=== PATIENT | female | born 1995 | race Caucasian/White ===

== ENCOUNTER 2018-06-08 13:41 | Outpatient (CLI) | payer OTHER ==
[~2018-06-08] VITALS: Ht 157.5 cm; Wt 86.5 kg
[2018-06-08 13:53] VITALS: Ht 157.5 cm; Wt 86.5 kg
[2018-06-08 13:54] VITALS: BP 122/70
[2018-06-08] MEDS ORDERED: PREN1TAB71 PO (13:55)
--- NOTE | 2018-06-08 17:34 | PN ---
Triage Information Date/Time Reason for visit: Abd/pelvic pain Weeks of Gestation 24 weeks and 5 days /Para [id number] Diabetes: none Objective Vital Signs Date Temp Pulse Resp B/P (MAP) Pulse Ox O2 O2 Flow FiO2 Time Delivery Rate 06/08/18 98.1 122/70 Room Air 13:54 (87) Heart Rate: 140's Results/Medications Results 24 hrs Laboratory Tests Test 06/08/18 14:08 06/08/18 15:30 Urine Color STRAW Urine Clarity CLEAR Urine pH 6.0 Urine Specific [place] 1.004 Urine Ketones NEGATIVE Urine Nitrite NEGATIVE Urine Bilirubin NEGATIVE Urine Urobilinogen NEGATIVE Urine Leukocyte Esterase TRACE A Urine Microscopic RBC 0 Urine Microscopic WBC 1 Urine Squamous Epithelial Cells FEW Urine Bacteria FEW A Urine Hemoglobin NEGATIVE Urine Glucose NEGATIVE Urine Total Protein NEGATIVE Fibronectin NEGATIVE Imaging Results There is a single live intrauterine . Normal cardiac activity is identified at a rate of 154 beats per minute. presentation is breech. Placenta is posterior grade 1. There is no evidence of placenta previa or abruption. The cervix is closed with a length of 5.0 cm. MVP= 4.5 cm cm IMPRESSION: MVP= 4.5 cm Breech position Disposition: Discharge Assessment/Plan 22 years old was 002 with single intrauterine at 24 weeks and 5 days with a JESSIKA of 09/23/2018 complaining of abdominal pain. She states baby has been active. She denies nausea, vomiting, shortness of breath, chest pain, headache, visual changes, vaginal bleeding or LOF. -FHR: No sign of metabolic acidosis- Category I -Contractions: None -Ultrasound performed as noted above. Normal cervical length - fibronectin negative, urinalysis normal -Symptoms and sign of labor, preeclampsia, kick count discussed with patient, she voiced understanding. All of her questions answered. -Patient was discharged home in stable condition with the appropriate discharge instructions provided. I would like patient to have close follow-up with her primary physician or outpatient clinic in 1-2 days or return to triage for worsening symptoms or any other urgent concerns. KAREN CARNEY Jun 08, 2018 17:34
== END 2018-06-08 17:35 | disposition home or self-care (01) ==
LOC: OBT 13:41 → L-D 13:41 → OBT 17:35
PROVIDERS: ATTEND Obstetrics & Gynecology
DX: O26.892 Other specified pregnancy related conditions, second trimester (principal); Z3A.24 24 weeks gestation of pregnancy; R10.2 Pelvic and perineal pain
CPT/HCPCS: 76815; 76817; 81001; 82731; Z7500; G0463

== ENCOUNTER 2018-08-23 10:08 | Outpatient (CLI) | payer OTHER ==
[~2018-08-23] VITALS: Ht 157.5 cm; Wt 94.9 kg
[~2018-08-23 10:08] MED LIST: PREN1TAB71 PO
[2018-08-23 10:26] VITALS: BP 128/66; PULSE 103; RESP 18; Ht 157.5 cm; Wt 94.9 kg
[2018-08-23] MEDS ORDERED: TERBUTALINE 1 ML ONE (11:16)
[2018-08-23] MEDS ORDERED: TERBUTALINE 1 MG/ML INJ SC ONE ×2 (11:30→15:00)
[2018-08-23] MEDS ORDERED: LACTATED RINGER'S 1,000 ML IV ONE (11:30)
[2018-08-23] MEDS ORDERED: LACTATED RINGER'S 1,000 ML IV SCH (13:00)
--- NOTE | 2018-08-23 14:43 | PN ---
Triage Information Date/Time August 23, 2018 Reason for visit: Sent in from clinic because of complaint of headache and blurred vision and is much his blood pressure was normal Weeks of Gestation 35 weeks and 4 days /Para 3 para 2 Diabetes: none Hypertention: none Objective Vital Signs Date Temp Pulse Resp B/P (MAP) Pulse Ox O2 O2 Flow FiO2 Time Delivery Rate 08/23/18 98.3 103 18 128/66 10:26 (86) Heart Rate: 140's Heart Rate Comments Reactive Contractions: 6-10 Minutes Apart (Contractions subsided after administration of subcutaneous terbutaline and IV hydration) Exam Closed Results/Medications Result Diagram: 08/23/18 1019 08/23/18 1019 Results 24 hrs Laboratory Tests Test 08/23/18 10:19 08/23/18 10:20 White Blood Count 8.9 Red Blood Count 4.07 L Hemoglobin 11.7 L Hematocrit 35.3 L Mean Corpuscular Volume 86.7 Mean Corpuscular Hemoglobin 28.7 L Mean Corpuscular Hemoglobin Concent 33.1 Red Cell Distribution Width 14.3 Platelet Count 175 Mean Platelet Volume 11.6 H Immature Granulocytes % 1.100 H Neutrophils % 74.9 Lymphocytes % 18.5 Monocytes % 4.6 Eosinophils % 0.7 Basophils % 0.2 Nucleated Red Blood Cells % 0.0 Immature Granulocytes # 0.100 H Neutrophils # 6.7 Lymphocytes # 1.7 Monocytes # 0.4 Eosinophils # 0.1 Basophils # 0.0 Nucleated Red Blood Cells # 0.0 Sodium Level 136 Potassium Level 4.0 Chloride Level 109 Carbon Dioxide Level 21 Anion Gap 6 Blood Urea Nitrogen 9 Creatinine 0.52 Est Glomerular Filtrat Rate mL/min > 60 Glucose Level 151 Uric Acid 6.2 Calcium Level 9.3 Total Bilirubin 0.3 Direct Bilirubin 0.00 Indirect Bilirubin 0.3 Aspartate Amino Transf (AST/SGOT) 28 Alanine Aminotransferase (ALT/SGPT) 14 Alkaline Phosphatase 168 H Total Protein 6.3 Albumin 3.3 Globulin 3.00 Albumin/Globulin Ratio 1.10 Prothrombin Time 12.4 Prothrombin Time Ratio 1.0 INR International Normalized Ratio 0.91 Activated Partial Thromboplast Time 30.0 Fibrinogen 491.0 H Urine Color YELLOW Urine Clarity SLIGHTLY CLOUDY A Urine pH 6.0 Urine Specific [place] 1.017 Urine Ketones NEGATIVE Urine Nitrite NEGATIVE Urine Bilirubin NEGATIVE Urine Urobilinogen NEGATIVE Urine Leukocyte Esterase NEGATIVE Urine Microscopic RBC 0 Urine Microscopic WBC 2 Urine Squamous Epithelial Cells FEW Urine Bacteria FEW A Urine Hemoglobin NEGATIVE Urine Glucose NEGATIVE Urine Total Protein NEGATIVE Medications Current Medications Lactated Ringer's 1,000 ml @ 125 mls/hr Q8H IV ; Start 08/23/18 at 13:00 Imaging Results Normal biophysical profile. The EFW = 3241 g, 93%ile based on LMP age. Disposition: Discharge Assessment/Plan Blood pressures remained stable and -induced hypertension was ruled out Will follow as outpatient Tractions subsided CHRIS BELLO MD Aug 23, 2018 14:43
--- NOTE | 2018-08-23 17:43 | TRIAGE ---
OB Triage Datetime Report Generated by CPN: 08/23/2018 17:42 Datetime: 08/23/2018 16:52 Stage of : OB Triage Datetime: 08/23/2018 16:08 Labor Evaluation Frequency: 0 Monitor Mode: External Pattern: Normal: <= 5 Contractions in 10 Minutes Resting Tone [place]: Relaxed Heart Rate FHR Baseline Rate: 135 Monitor Mode: External US Variability: Moderate 6-25 bpm Accelerations: 10X10 Decelerations: None Category: Category I Pain Assessment Pain Scale: 0 Pain Presence: None/Denies Pain Type: N/A Pain Goal: 3 Pain Relief Measures: Comfort Measures Datetime: 08/23/2018 15:09 Labor Evaluation Frequency: 8-10 Monitor Mode: External Duration (sec)2399: 40-60 Pattern: Normal: <= 5 Contractions in 10 Minutes Resting Tone [place]: Relaxed Heart Rate FHR Baseline Rate: 135 Monitor Mode: External US Variability: Moderate 6-25 bpm Accelerations: 10X10 Decelerations: None Category: Category I Pain Assessment Pain Scale: 0 Pain Presence: None/Denies Pain Type: N/A Pain Goal: 3 Pain Relief Measures: Comfort Measures Datetime: 08/23/2018 14:44 Stage of : OB Triage Datetime: 08/23/2018 14:03 Labor Evaluation Frequency: 0 Monitor Mode: External Pattern: Normal: <= 5 Contractions in 10 Minutes Resting Tone [place]: Relaxed Heart Rate FHR Baseline Rate: 135 Monitor Mode: External US Variability: Moderate 6-25 bpm Accelerations: 10X10 Decelerations: None Category: Category I Pain Assessment Pain Scale: 0 Pain Presence: None/Denies Pain Type: N/A Pain Goal: 3 Pain Relief Measures: Comfort Measures Datetime: 08/23/2018 13:40 Stage of : OB Triage Datetime: 08/23/2018 13:02 Labor Evaluation Frequency: 6-7 Monitor Mode: External Duration (sec)2399: 40-60 Pattern: Normal: <= 5 Contractions in 10 Minutes Resting Tone [place]: Relaxed Heart Rate FHR Baseline Rate: 135 Monitor Mode: External US Variability: Moderate 6-25 bpm Accelerations: 10X10 Decelerations: None Category: Category I Pain Assessment Pain Scale: 2 Pain Presence: Intermittent Pain Type: Cramping Pain Location: Abdomen Pain Goal: 3 Pain Relief Measures: Comfort Measures Datetime: 08/23/2018 11:59 Labor Evaluation Frequency: 0 Monitor Mode: External Pattern: Normal: <= 5 Contractions in 10 Minutes Resting Tone [place]: Relaxed Heart Rate FHR Baseline Rate: 140 Monitor Mode: External US Variability: Moderate 6-25 bpm Accelerations: 10X10 Decelerations: None Category: Category I Pain Assessment Pain Scale: 0 Pain Presence: None/Denies Pain Type: N/A Pain Goal: 3 Pain Relief Measures: Comfort Measures Datetime: 08/23/2018 11:09 Stage of : OB Triage Datetime: 08/23/2018 11:06 Labor Evaluation Frequency: 3-5 Monitor Mode: External Duration (sec)2399: 50-70 Quality: Mild Pattern: Normal: <= 5 Contractions in 10 Minutes Resting Tone [place]: Relaxed Contraction Comments: DENIES FEELING Heart Rate FHR Baseline Rate: 135 Monitor Mode: External US Variability: Moderate 6-25 bpm Accelerations: 10X10 Decelerations: None Category: Category I Pain Assessment Pain Scale: 0 Pain Presence: None/Denies Pain Type: N/A Pain Goal: 3 Pain Relief Measures: Comfort Measures Datetime: 08/23/2018 10:17 Stage of : OB Triage Assessment Type: Triage Maternal Assessment Level of Consciousness: Fully Conscious DTR's/Clonus: DTRs 2+; No Clonus Headache: Denies Blurred Vision: No Respiratory Effort: Unlabored; Regular Rhythm; Equal Expansion Breath Sounds, Left: Clear and Equal Breath Sounds, Right: Clear and Equal Nausea/Vomiting: Denies RUQ Epigastric Pain: Denies Facial Edema: None Temperature Route: Axillary Fall Risk Assessment History of Falling: (0) No Secondary Diagnosis: (0) No Ambulatory Aid: (0) Bedrest/Nurse Assist IV Therapy: (0) No Gait: (0) Normal/Bedrest/Immobile Mental Status: (0) Oriented to Own Ability Fall Score: 0 Fall Risk Score Definition: No Risk: No action required Labor Evaluation Frequency: 0 Monitor Mode: External Pattern: Normal: <= 5 Contractions in 10 Minutes Resting Tone [place]: Relaxed Heart Rate FHR Baseline Rate: 125 Monitor Mode: External US Variability: Moderate 6-25 bpm Accelerations: 10X10 Decelerations: None Category: Category I Pain Assessment Pain Scale: 4 (Annotations: VAG PRESSURE) Pain Presence: Constant Pain Location: Perineum Pain Goal: 3 Pain Relief Measures: Comfort Measures Datetime: 08/23/2018 10:15 Time of Arrival: 08/23/2018 10:05 EGA: 35.4 Arrived By: Ambulatory Arrived From: Home Chief Complaint: REFERRED FROM CLINIC FOR PIH, DENIES H/A, BLURRY VISION OR EPIGASTRIC PAIN AT THIS TIME. DENIES BLEEDING, LEAKING OR UC'S Movement: Present Contractions: Denies/Absent Rupture of Membranes: Denies Vaginal Bleeding: None Vaginal Discharge: Denies Recent Sexual Intercouse: Denies Abdominal Trauma: Not Applicable Time Provider Notified: 08/23/2018 14:45 Provider Notified: KOMAL Initial Plan: MONITOR, PIH PANEL, IV HYDRATION, TERB Datetime: 06/08/2018 16:29 Stage of : OB Triage Labor Evaluation Frequency: 0 Monitor Mode: External Pattern: Normal: <= 5 Contractions in 10 Minutes Resting Tone [place]: Relaxed Heart Rate FHR Baseline Rate: 145 Monitor Mode: External US Variability: Moderate 6-25 bpm Accelerations: 15X15 Decelerations: None Category: Category I Datetime: 06/08/2018 14:18 Decelerations: Variable Category: Category II Datetime: 06/08/2018 13:52 Comments: SITTING UP Datetime: 06/08/2018 13:49 Stage of : OB Triage Assessment Type: Triage Maternal Assessment Level of Consciousness: Fully Conscious DTR's/Clonus: DTRs 2+; No Clonus Headache: Denies Blurred Vision: No Respiratory Effort: Unlabored; Regular Rhythm; Equal Expansion Breath Sounds, Left: Clear and Equal Breath Sounds, Right: Clear and Equal Nausea/Vomiting: Denies RUQ Epigastric Pain: Denies Lower Extremities Edema: None Degree: None Upper Extremities Edema: None Degree: None Facial Edema: None Temperature Route: Oral Fall Risk Assessment History of Falling: (0) No Secondary Diagnosis: (0) No Ambulatory Aid: (0) Bedrest/Nurse Assist IV Therapy: (0) No Gait: (0) Normal/Bedrest/Immobile Mental Status: (0) Oriented to Own Ability Fall Score: 0 Fall Risk Score Definition: No Risk: No action required Monitor Mode: External (Annotations: INIITIAL PLACEMENT ) Monitor Mode: External US (Annotations: INITITAL PLACEMENT ) Pain Assessment Pain Scale: 8 Pain Presence: Intermittent Pain Type: Pressure; Ache Pain Location: Abdomen Datetime: 06/08/2018 13:48 Time of Arrival: 06/08/2018 13:37 EGA: 24.5 Arrived By: Ambulatory Arrived From: Home Chief Complaint: C/O ABD PAIN AND PRESSURE SINCE LAST NIGHT Movement: Present Contractions: Denies/Absent Rupture of Membranes: Denies Vaginal Bleeding: None Vaginal Discharge: Denies Recent Sexual Intercouse: Denies Abdominal Trauma: Not Applicable Patient Complaints: Other Initial Plan: EFCorin, [place] ROB[place]
== END 2018-08-23 17:08 | disposition home or self-care (01) ==
LOC: OBT 10:08 → L-D 10:09 → OBT 17:08
PROVIDERS: ATTEND Obstetrics & Gynecology
DX: O26.893 Other specified pregnancy related conditions, third trimester (principal); H53.8 Other visual disturbances; R51 Headache; Z3A.35 35 weeks gestation of pregnancy
CPT/HCPCS: 36415; 76815; 76818; 80053; 81001; 84560; 85025; 85384; 85610; 85730; 96360; 96361; 96372; J3105; J7120; Z7500; 81003; G0463

== ENCOUNTER 2018-08-25 11:06 | Outpatient (CLI) | payer OTHER ==
[~2018-08-25] VITALS: Ht 157.5 cm; Wt 95.9 kg
[2018-08-25 12:15] VITALS: Ht 157.5 cm; Wt 95.9 kg
[2018-08-25 12:16] VITALS: BP 108/61; PULSE 88; RESP 19
--- NOTE | 2018-08-25 18:10 | TRIAGE ---
OB Triage Datetime Report Generated by CPN: 08/25/2018 18:10 Datetime: 08/25/2018 17:00 Labor Evaluation Frequency: 0 Monitor Mode: External Pattern: Normal: <= 5 Contractions in 10 Minutes Resting Tone [place]: Relaxed Heart Rate FHR Baseline Rate: 130 Monitor Mode: External US FHR Baseline Changes: No Baseline Change Variability: Moderate 6-25 bpm Accelerations: 15X15 Decelerations: None Category: Category I Datetime: 08/25/2018 16:00 Labor Evaluation Frequency: occas Monitor Mode: External Duration (sec)2399: 80-110 Quality: Mild Pattern: Normal: <= 5 Contractions in 10 Minutes Resting Tone [place]: Relaxed Heart Rate FHR Baseline Rate: 130 Monitor Mode: External US Variability: Moderate 6-25 bpm Accelerations: 15X15 Decelerations: None Category: Category I Datetime: 08/25/2018 14:00 Labor Evaluation Frequency: OCCAS Monitor Mode: External Duration (sec)2399: 50-80 Quality: Mild Pattern: Normal: <= 5 Contractions in 10 Minutes Resting Tone [place]: Relaxed Heart Rate FHR Baseline Rate: 120 Monitor Mode: External US FHR Baseline Changes: No Baseline Change Variability: Moderate 6-25 bpm Accelerations: 15X15 Decelerations: None Category: Category I Datetime: 08/25/2018 13:00 Labor Evaluation Frequency: IRREGULAR Monitor Mode: External Duration (sec)2399: 50-90 Quality: Mild Pattern: Normal: <= 5 Contractions in 10 Minutes Resting Tone [place]: Relaxed Heart Rate FHR Baseline Rate: 125 Monitor Mode: External US Variability: Moderate 6-25 bpm Accelerations: 15X15 Decelerations: None Category: Category I Datetime: 08/25/2018 12:19 Assessment Type: Triage Maternal Assessment Level of Consciousness: Keenly Alert, Responsive DTR's/Clonus: DTRs 2+; No Clonus Headache: Denies Blurred Vision: No Respiratory Effort: Unlabored; Regular Rhythm; Equal Expansion Breath Sounds, Left: Clear and Equal Breath Sounds, Right: Clear and Equal Nausea/Vomiting: Denies RUQ Epigastric Pain: Denies Lower Extremities Edema: None Degree: None Upper Extremities Edema: None Degree: None Facial Edema: None Fall Risk Assessment History of Falling: (0) No Secondary Diagnosis: (0) No Ambulatory Aid: (0) Bedrest/Nurse Assist IV Therapy: (0) No Gait: (0) Normal/Bedrest/Immobile Mental Status: (0) Oriented to Own Ability Fall Score: 0 Fall Risk Score Definition: No Risk: No action required Datetime: 08/25/2018 12:18 Time of Arrival: 08/25/2018 11:00 EGA: 35.6 Arrived By: Ambulatory Arrived From: Office Chief Complaint: elevated bp's Movement: Present Rupture of Membranes: Denies Vaginal Bleeding: None Vaginal Discharge: Denies Recent Sexual Intercouse: Denies Abdominal Trauma: Not Applicable Patient Complaints: Other Time Provider Notified: 08/25/2018 17:58 Provider Notified: DR SAUCEDA Initial Plan: [facility] labs Datetime: 08/23/2018 10:17 Fall Score: 0 Fall Risk Score Definition: No Risk: No action required Datetime: 08/23/2018 10:15 EGA: 35.4 Datetime: 06/08/2018 13:49 Fall Score: 0 Fall Risk Score Definition: No Risk: No action required Datetime: 06/08/2018 13:48 EGA: 24.5
--- NOTE | 2018-08-25 18:15 | PN ---
Triage Information Date/Time 08/25/2018 Reason for visit: Patient was sent in to rule out -induced hypertension because of complaint of headache blurred vision swelling and a trace proteinuria Weeks of Gestation 35 weeks and 6 days /Para 3 para 2 Diabetes: none Hypertention: none Objective Vital Signs Date Temp Pulse Resp B/P (MAP) Pulse Ox O2 O2 Flow FiO2 Time Delivery Rate 08/25/18 98.5 88 19 108/61 12:16 (77) Heart Rate: 140's Heart Rate Comments Reactive Results/Medications Result Diagram: 08/25/18 1230 08/25/18 1230 Results 24 hrs Laboratory Tests Test 08/25/18 12:30 White Blood Count 8.3 Red Blood Count 4.07 L Hemoglobin 11.6 L Hematocrit 35.2 L Mean Corpuscular Volume 86.5 Mean Corpuscular Hemoglobin 28.5 L Mean Corpuscular Hemoglobin Concent 33.0 Red Cell Distribution Width 14.1 Platelet Count 173 Mean Platelet Volume 11.7 H Immature Granulocytes % 0.700 H Neutrophils % 69.6 Lymphocytes % 20.9 Monocytes % 7.9 Eosinophils % 0.7 Basophils % 0.2 Nucleated Red Blood Cells % 0.0 Immature Granulocytes # 0.060 H Neutrophils # 5.8 Lymphocytes # 1.7 Monocytes # 0.7 Eosinophils # 0.1 Basophils # 0.0 Nucleated Red Blood Cells # 0.0 Activated Partial Thromboplast Time 29.5 Fibrinogen 533.0 #H Sodium Level 137 Potassium Level 4.1 Chloride Level 110 Carbon Dioxide Level 19 L Anion Gap 8 Blood Urea Nitrogen 10 Creatinine 0.46 Est Glomerular Filtrat Rate mL/min > 60 Glucose Level 66 L Uric Acid 6.2 Calcium Level 9.0 Total Bilirubin 0.3 Direct Bilirubin 0.00 Indirect Bilirubin 0.3 Aspartate Amino Transf (AST/SGOT) 27 Alanine Aminotransferase (ALT/SGPT) 16 Alkaline Phosphatase 184 H Total Protein 6.5 Albumin 3.3 Globulin 3.20 Albumin/Globulin Ratio 1.03 Imaging Results Biophysical profile = 10/20 No sonographic evidence for deep venous thrombosis. Disposition: Discharge Assessment/Plan Follow-up in clinic for outpatient services care CHRIS BELLO MD Aug 25, 2018 18:15
== END 2018-08-25 17:55 | disposition home or self-care (01) ==
LOC: OBT 11:06 → L-D 11:08 → OBT 17:55
PROVIDERS: ATTEND Obstetrics & Gynecology
DX: O12.13 Gestational proteinuria, third trimester (principal); O26.893 Other specified pregnancy related conditions, third trimester; R51 Headache; H53.8 Other visual disturbances; O13.3 Gestational [pregnancy-induced] hypertension without significant proteinuria, third trimester; Z3A.35 35 weeks gestation of pregnancy
CPT/HCPCS: 76818; 80053; 84560; 85025; 85384; 85730; 93970; Z7500; G0463

== ENCOUNTER 2018-09-06 10:47 | Inpatient (IN) | payer OTHER ==
[~2018-09-06] VITALS: Ht 157.5 cm; Wt 98.8 kg
[2018-09-06 11:12] VITALS: BP 131/72; PULSE 98; RESP 18; Ht 157.5 cm; Wt 98.8 kg
[2018-09-06] MEDS ORDERED: LACTATED RINGER'S 1,000 ML IV SCH (15:01)
[2018-09-06] MEDS ORDERED: AL HYDROX/MG HYDROX/SIMETH 30 ML CUP PO ONE (18:00)
[2018-09-06] MEDS ORDERED: FAMOTIDINE 20 MG TAB PO SCH (21:00)
[2018-09-06] MEDS: FAMOTIDINE 20 MG TAB PO SCH (22:27)
[2018-09-07] MEDS: FAMOTIDINE 20 MG TAB PO SCH ×2 (09:02→21:00)
--- NOTE | 2018-09-07 14:10 | HP ---
Date/Time of Note Date/Time of Note DATE: 09/07/18 TIME: 14:07 OB - History Hx of Present Free Text/Dictation 23-year-old female 3 para 237 weeks and 4 days gestation complaining of leg swelling for few weeks and onset of suggestive headache and blurred vision started in a.m. of admission Estimated Due Date: Sep 23, 2018 : 3 Para: 2 Care: Good Care Ultrasounds: Normal mid trimester US Obstetrical Complications: None Medical Complications: None Past Family/Social History * Past Medical, Surgical, Family and Obstetric Histories reviewed from chart. OB Admission Exam Vital Signs Vital Signs Vital Signs Date Temp Pulse Resp B/P (MAP) Pulse Ox O2 O2 Flow FiO2 Time Delivery Rate 09/06/18 98.2 98 18 131/72 11:12 (91) Physical Exam HEENT: WNL Heart: Rhythm Normal Lungs: Clear, Equal Abdomen: WNL Extremities: Normal Reflexes: Normal Cervical Dilatation: None Effacement: 0% Station: -3 Membranes: Intact Heart Rate: 140's Accelerations: Accelerations Present Decelerations: No Decelerations Varibility: Marked Contractions on Admission: None Last 72 hours Lab Results CBC & BMP 09/06/18 11:27 Liver Function Test 09/06/18 11:27 Alanine Aminotransferase (ALT/SGPT) 11 L Albumin 3.1 L Alkaline Phosphatase 204 H Aspartate Amino Transf (AST/SGOT) 22 Direct Bilirubin 0.00 Total Protein 6.2 OB Assessment/Plan Other Assessment: Patient with symptoms of -induced hypertension however has normal blood pressure and labs She has 2+ pitting edema and ultrasound is not suggestive of DVTs Other plan: Patient was kept into complete 24-hour urine collection for protein and creatinine clearance CHRIS BELLO MD Sep 07, 2018 14:10
--- NOTE | 2018-09-07 17:57 | PN ---
Date/Time of Note Date/Time of Note DATE: 09/07/18 TIME: 17:56 OB Subjective Subjective Subjective Patient currently does not have major medical complaints No complaint of headache blurred vision or epigastric pain OB Objective Objective Objective Vital signs are stable blood pressures appear feels normal Patient has over 600 mg of proteinuria in 24 hours General physical exam is unchanged OB Assessment/Plan Other Assessment: 37 weeks and 5 days gestation Mild -induced hypertension Other plan: Start induction of labor CHRIS BELLO MD Sep 07, 2018 17:57
[2018-09-07] MEDS ORDERED: METHYLERGONOVINE 0.2 MG INJ IM PRN (19:00)
[2018-09-07] MEDS ORDERED: LIDOCAINE 1% (MPF) 30 ML INJ INJ PRN (19:00)
[2018-09-07] MEDS ORDERED: OXYTOCIN 30 UNITS/LR 500 ML IV SCH ×2 (19:00)
[2018-09-07] MEDS ORDERED: IBUPROFEN 600 MG TAB PO PRN (19:00)
[2018-09-07] MEDS ORDERED: BUTORPHANOL 2 MG INJ IV PRN (19:00)
[2018-09-07] MEDS ORDERED: AMPICILLIN 2 GM/NS (PMX) 100 ML IV ONE (19:00)
[2018-09-07] MEDS ORDERED: MISOPROSTOL 200 MCG TAB PR PRN (19:00)
[2018-09-07] MEDS ORDERED: CARBOPROST 250 MCG INJ IM PRN (19:00)
[2018-09-07] MEDS ORDERED: OXYTOCIN 30 UNITS/LR 500 ML IV PRN (19:00)
[2018-09-07] MEDS: LACTATED RINGER'S 1,000 ML IV SCH (19:59)
[2018-09-07] MEDS: MISOPROSTOL 50 MCG CAPSULE PO SCH (21:10)
[2018-09-07] MEDS ORDERED: AMPICILLIN 1 GM/NS (PMX) 50 ML IV SCH (23:00)
[2018-09-08] MEDS: MISOPROSTOL 50 MCG CAPSULE PO SCH ×4 (03:01→19:00)
[2018-09-08] MEDS: LACTATED RINGER'S 1,000 ML IV SCH ×3 (04:13→19:49)
[2018-09-08] MEDS: FAMOTIDINE 20 MG TAB PO SCH ×2 (09:00→23:55)
--- NOTE | 2018-09-08 14:53 | PN ---
Date/Time of Note Date/Time of Note DATE: 09/08/18 TIME: 14:52 OB Subjective Subjective Subjective Patient has no complaint of headache blurred vision or epigastric pain OB Objective Objective Objective Blood pressure of infection is stable Patient does not seem in any acute distress General physical exam is unchanged Cervix is 70% 3 to 4 cm dilated and presenting part vertex -3 station OB Assessment/Plan Other Assessment: Mild -induced hypertension at 37 weeks and 6 days Other plan: Patient appears to have regular uterine contractions every 2 to 3 minutes Will augment labor if necessary CHRIS BELLO MD Sep 08, 2018 14:53
[2018-09-09] MEDS: LACTATED RINGER'S 1,000 ML IV SCH ×2 (04:01→12:43)
[2018-09-09] MEDS ORDERED: OXYTOCIN 30 UNITS/LR 500 ML IV SCH ×2 (08:30)
[2018-09-09] MEDS ORDERED: LACTATED RINGER'S 1,000 ML IV PRN (16:07)
[2018-09-09] MEDS ORDERED: FENTAnyl 2MCG/ML-ROPIV 0.2% 100 ML BAG EPI SCH (16:30)
[2018-09-09] MEDS ORDERED: NALOXONE (0.4 MG/ML) INJ IV PRN (16:30)
--- NOTE | 2018-09-09 16:30 | PREAC ---
Date/Time of Note Date/Time of Note DATE: 09/09/18 TIME: 16:29 Anesthesia Eval and Record Evaluation Time Pre-Procedure Interview DATE: 09/09/18 TIME: 16:29 Age 23 Sex female NPO: 8 hrs Preoperative diagnosis labor pain Planned procedure epidural Past Medical History Past Medical History: Includes Cardio: HTN Surgery & Anesthesia Issues No known issue Meds Anticoagulation: No Beta Any within 24 hr: No Reason Beta Any not given: Pt. not on B-Any Reported Medications Vit No.130/Iron/FA ( Tablet) 1 Each Tablet, 1 EACH PO 06/08/18 Current Medications Lactated Ringer's 1,000 ml @ 125 mls/hr Q8H IV ; Start 09/06/18 at 15:01; Status Hold Famotidine (Pepcid) 20 mg BID PO Last administered on 09/08/18at 23:55; Admin Dose 20 MG; Start 09/06/18 at 21:00 Lactated Ringer's 1,000 ml @ 125 mls/hr Q8H IV Last administered on 09/09/18at 12:43; Admin Dose 125 MLS/HR; Start 09/07/18 at 18:51 Butorphanol Tartrate (Stadol) 2 mg Q2H PRN IV .PAIN SCALE 6-10 Last administered on 09/09/18at 14:26; Admin Dose 2 MG; Start 09/07/18 at 19:00 Lidocaine (Xylocaine 1% (Mpf)) 30 ml ONCE PRN INJ .EPISIOTOMY; Start 09/07/18 at 19:00 Oxytocin/Lactated Ringer's 500 ml @ 500 mls/hr ONCE POST IV ; Start 09/07/18 at 19:00 Oxytocin/Lactated Ringer's 500 ml @ 125 mls/hr POST IV ; Start 09/07/18 at 19:00 Ibuprofen (Motrin) 600 mg ONCE PRN PO .PAIN 1-5; Start 09/07/18 at 19:00 Oxytocin/Lactated Ringer's 500 ml @ 0 mls/hr ONCE PRN IV .VAGINAL BLEEDING; Start 09/07/18 at 19:00 Methylergonovine Maleate (Methergine) 0.2 mg ONCE PRN IM .VAGINAL BLEEDING; Start 09/07/18 at 19:00 Carboprost Tromethamine (Hemabate) 250 mcg ONCE PRN IM .VAGINAL BLEEDING; Start 09/07/18 at 19:00 Misoprostol (Cytotec) 1,000 mcg ONCE PRN ID .VAGINAL BLEEDING; Start 09/07/18 at 19:00 Oxytocin/Lactated Ringer's 500 ml @ 0 mls/hr FOR INDUCTION IV Last administered on 09/09/18at 08:38; Admin Dose 1 MLS/HR; Start 09/09/18 at 08:30 Lactated Ringer's 1,000 ml @ 2,000 mls/hr Q30M PRN IV .ANESTHESIA Last admini stered on 09/09/18at 16:15; Admin Dose 2,000 MLS/HR; Start 09/09/18 at 16:07 Meds reviewed: Yes Allergies Coded Allergies: No Known Allergy (Unverified , 08/23/18) Allergies Reviewed: Yes Labs/Studies Labs Reviewed: Reviewed by anesthesiologist Result Diagram: 09/07/18191809/06/18 1127 test: N/A Pre-procedure Exam Last vitals Vital Signs Date Temp Pulse Resp B/P (MAP) Pulse Ox O2 O2 Flow FiO2 Time Delivery Rate 09/06/18 98.2 98 18 131/72 11:12 (91) Airway: Adequate mouth opening, Adequate thyromental dist Mallampati: Mallampati III Teeth: Normal Lung: Normal Heart: Normal ASA Physical Status ASA physical status: 2 Emergency: None Pre-operative Attestations Prior to commencing anesthesia and surgery, the patient was re-evaluated, there was verification of: *The patient's identity *The results of appropriate recent lab work and preoperative vital signs *The above evaluation not changing prior to induction *Anesthetic plan, risk benefits, alternative and complications discussed with patient/family; questions answered; patient/family understands, accepts and wishes to proceed. LANA GARRISON DO Sep 09, 2018 16:30
[2018-09-09] MEDS ORDERED: FENTAnyl 2MCG/ML-ROPIV 0.2% 100 ML ONE (16:32)
[2018-09-09] MEDS ORDERED: ACETAMINOPHEN 500 MG TAB PO STA (17:35)
--- NOTE | 2018-09-09 17:35 | LDN ---
Date/Time of Note Date/Time of Note DATE: 09/09/18 TIME: 17:34 Delivery Summary Normal spontaneous vaginal delivery of a viable over intact perineum Weeks of Gestation 38 weeks Placenta Delivered: Spontaneously, Intact & Complete Meconium: none Episiotomy: No Perineal laceration: 0 Laceration repair: Small paraurethral and vestibular laceration was repaired with running stitches of 4-0 chromic on a small half needle Anesthesia type: Local Estimated blood loss: 300 Sponge & Needle done & correct: Yes All needle counts correct: Yes Any foreign bodies felt in the: No Infant Delivery Information Sex Sex: female Apgars 1 Minute: 9 5 Minute: 9 Suctioning Nose & mouth suctioned at rashel: Yes Delee suction performed: No Umbilical Cord Umbilical cord with: 3 Vessels Cord presentations: no nuchal cord Cord Blood was obtained: Yes Mother & Baby Disposition Disposition Mom & Baby to Maternity; Good: Yes (Mother and baby were recovered in good condition) Mom transferred to: Other (Maternity) Baby to NICU: No CHRIS BELLO MD Sep 09, 2018 17:35
[2018-09-09] MEDS ORDERED: KETOROLAC 30 MG INJ IV PRN (18:00)
[2018-09-09] MEDS ORDERED: LIDOCAINE 1% (MPF) 5 ML VIAL INFIL ONE (18:30)
[2018-09-09] MEDS ORDERED: MINERAL OIL LIGHT 10 ML VIAL TOP ONE (18:30)
[2018-09-09] MEDS: LACTATED RINGER'S 1,000 ML IV* SCH (20:37)
[2018-09-09 20:50] VITALS: BP 129/81; PULSE 75; RESP 19
[2018-09-09] MEDS: MAGNESIUM HYDROXIDE 30ML CUP PO SCH (20:57)
[2018-09-09] MEDS: SENNA/DOCUSATE NA (8.6MG/50MG) TAB PO SCH (20:59)
[2018-09-09] MEDS ORDERED: CARBOPROST 250 MCG INJ IM PRN (21:00)
[2018-09-09] MEDS ORDERED: BENZOCAINE 20% 56 ML SPRAY TOP PRN (21:00)
[2018-09-09] MEDS ORDERED: MISOPROSTOL 200 MCG TAB PR PRN (21:00)
[2018-09-09] MEDS ORDERED: DIBUCAINE 1% 30 GM OINT TOP PRN (21:00)
[2018-09-09] MEDS ORDERED: METHYLERGONOVINE 0.2 MG INJ IM PRN (21:00)
[2018-09-09] MEDS ORDERED: WITCH HAZEL/GLYCERIN PAD PR PRN (21:00)
[2018-09-09] MEDS ORDERED: LANOLIN HPA 1 PKT TOP PRN (21:00)
[2018-09-09] MEDS ORDERED: HYDROCODONE/APAP (5/325) TAB PO PRN ×2 (21:00)
[2018-09-09] MEDS ORDERED: OXYTOCIN 30 UNITS/LR 500 ML IV PRN (21:00)
[2018-09-09] MEDS ORDERED: ZOLPIDEM 5 MG TAB PO PRN (21:00)
[2018-09-09] MEDS: IBUPROFEN 600 MG TAB PO SCH (23:58)
[2018-09-10 00:15] VITALS: BP 125/58; PULSE 92; RESP 19
[2018-09-10 03:44] VITALS: BP 121/59; PULSE 93; RESP 18
[2018-09-10] MEDS: LACTATED RINGER'S 1,000 ML IV* SCH (04:37)
[2018-09-10] MEDS: IBUPROFEN 600 MG TAB PO SCH ×4 (05:28→23:44)
--- NOTE | 2018-09-10 06:27 | PAC ---
Date/Time of Note Date/Time of Note DATE: 09/10/18 TIME: 06:27 Post-Anesthesia Notes Post-Anesthesia Note Last documented vital signs Vital Signs Date Temp Pulse Resp B/P (MAP) Pulse Ox O2 O2 Flow FiO2 Time Delivery Rate 09/10/18 98.5 93 18 121/59 Room Air 03:44 (79) Activity: WNL Respiratory function: WNL Cardiovascular function: WNL Mental status: Baseline Pain reasonably controlled: Yes Hydration appropriate: Yes Nausea/Vomiting absent: Yes LANA GARRISON DO Sep 10, 2018 06:27
[2018-09-10 08:35] VITALS: BP 110/65; PULSE 79; RESP 18
[2018-09-10] MEDS: MAGNESIUM HYDROXIDE 30ML CUP PO SCH ×2 (09:00→21:00)
[2018-09-10] MEDS: SENNA/DOCUSATE NA (8.6MG/50MG) TAB PO SCH ×2 (09:00→21:00)
[2018-09-10 15:55] VITALS: BP 125/70; PULSE 83; RESP 18
--- NOTE | 2018-09-10 16:40 | DS ---
Date/Time of Note Date/Time of Note Home today or next day DATE: 09/10/18 TIME: 16:39 Obstetrical Discharge Record Final Diagnosis Final Diagnosis: Term delivered Other Final Diagnosis Status post vaginal delivery Vaginal Delivery Obstetrical Delivery: Spontaneous, Laceration, Repaired Complications Preg induced Hypertension Augmentation: Yes Induction: Yes Condition on Discharge Physical Assessment Last Vitals: See nurse's notes Voiding: Yes Bowel Movement: Yes Breast: Soft, non-tender, Filling Fundus: Firm Abdomen and Incision: Abdomen is soft with firm fundus Episiotomy: Perineum is clean Calf Tenderness: No Patient Condition: Good CHRIS BELLO MD Sep 10, 2018 16:40
[2018-09-10] MEDS ORDERED: IBUP-1542 PO (16:42)
--- NOTE | 2018-09-10 16:42 | PD.PPDC ---
NEGATIVE CHECKER Discharge Instruction Provider Information Physician Information 23-year-old female induction of labor because of proteinuria exceeding 300 mg/day and had spontaneous vaginal delivery Diagnosis [id number] Final Diagnosis: [id number] Status post vaginal delivery Condition [id number] Patient Condition: Ucnqb1b Good Diet [id number] Diet: Zuufb1r Resume Regular Diet Activity/Restrictions [id number] Activity: Iobok7k Normal Activity May Shower [id number] Restrictions: Xjodg1l Nothing in the Vagina [id number] Return to Work or School: [id number] Oct 31, 2018 Follow-up Follow-up with Physician: 2, 4, Week/Weeks (In clinic for follow-up) Return to clinic for [id number] OB Instructions: Qtgfx0e Breast Tenderness Depression Comment: Pelvic rest for 6 weeks CHRIS BELLO MD Sep 10, 2018 16:41
[2018-09-10 19:30] VITALS: BP 134/83; PULSE 83; RESP 19
[2018-09-11] VITALS: BP 128/75; PULSE 76; RESP 19
[2018-09-11 04:00] VITALS: BP 120/62; PULSE 85; RESP 18
[2018-09-11] MEDS: IBUPROFEN 600 MG TAB PO SCH ×2 (05:52→12:23)
[2018-09-11 08:30] VITALS: BP 111/61; PULSE 84; RESP 18
[2018-09-11] MEDS ORDERED: VARICELLA VACCINE LIVE/PF 1,350 UNIT/0.5 ML ML SC* ONE (09:00)
[2018-09-11] MEDS ORDERED: DIPHTH/TET/ACEL PERTUSS (ADULT) 0.5 ML VIAL IM* ONE (09:00)
[2018-09-11] MEDS: MAGNESIUM HYDROXIDE 30ML CUP PO SCH (09:00)
[2018-09-11] MEDS: SENNA/DOCUSATE NA (8.6MG/50MG) TAB PO SCH (09:00)
[2018-09-11] MEDS ORDERED: MEASLES,MUMPS,RUBELLA VACCINE INJ SC* ONE (09:00)
--- NOTE | 2018-09-12 13:51 | DELSUM ---
Delivery Summary A-C Datetime Report Generated by CPN: 09/12/2018 13:51 DELIVERY PERSONNEL Core Java Engineer: Reyes, Hunter MATERNAL INFORMATION Delivery Anesthesia: Epidural Medications in Delivery: LR WITH 30 UNITS PITOCIN Delivery QBL (ml): 300 Placenta Cultured: No Maternal Complications: None LABOR SUMMARY EDC: 09/23/2018 00:00 No. Babies in Womb: 1 Attempted: No Labor Anesthesia: Epidural LABOR INFORMATION Complete Dilatation: 09/09/2018 17:12 Cervical Ripening Agents: Cytotec @ 50 Oxytocin: Augmentation Group B Beta Strep: Negative Antibiotics # of Doses: 0 Steroids Given: None Reason Steroids Not Administered: Not Applicable MEMBRANES Membranes Rupture Method: Artificial Rupture of Membranes: 09/09/2018 14:10 Length of Rupture (hr): 3.15 Amniotic Fluid Color: Clear Amniotic Fluid Amount: Moderate Amniotic Fluid Odor: None STAGES OF LABOR Stage 2 hr: 0 Stage 2 min: 7 Stage 3 hr: 0 Stage 3 min: 4 VAGINAL DELIVERY Episiotomy: None Laceration Extension: N/A Other Laceration: VESTIVULAR Laceration Repair: Yes Initial Vag Sponge Count: 10 Final Vag Sponge Count: 10 Initial Vag Sharps Count: 2 Final Vag Sharps Count: 2 Sponge Count Correct: Yes Sharps Count Correct: Yes BABY A INFORMATION Delivery Date/Time: 09/09/2018 17:19 Method of Delivery: Vaginal Born in Route : No : N/A Forceps: N/A Vacuum Extraction: N/A Shoulder Dystocia : N/A SHOULDER DYSTOCIA BABY A Delivery Date/Time: 09/09/2018 17:19 PRESENTATION/POSITION BABY A Presentation: Cephalic Cephalic Presentation: Vertex Vertex Position: Left Occipital Anterior Breech Presentation: N/A PLACENTA INFORMATION BABY A Placenta Delivery Time : 09/09/2018 17:23 Placenta Method of Delivery: Spontaneous Placenta Status: Delivered SCORES BABY A Heart Rate 1 min: >100 bpm Resp Effort 1 min: Good Cry Reflex Irritability 1 min: Cough/Sneeze/Pulls Away Muscle Tone 1 min: Active Motion Color 1 min: Body [place], Extremit Blue Resuscitation Effort 1 min: Tactile Stimulation SCORE 1 MIN: 9 Heart Rate 5 min: >100 bpm Resp Effort 5 min: Good Cry Reflex Irritability 5 min: Cough/Sneeze/Pulls Away Muscle Tone 5 min: Active Motion Color 5 min: Body [address], Extremit Blue Resuscitation Effort 5 min: Tactile Stimulation SCORE 5 MIN: 9 INFANT INFORMATION BABY A Gestational Age at Delivery: 38.0 Gestational Status: Early Term- 37- 38.6 Weeks Infant Outcome : Liveborn, with signs of life Condition : Stable Infant Sex: Female IDENTIFICATION/MEDS BABY A ID Band Number: [id number] Sensor Applied: Yes Sensor Number: [id number] WEIGHT/LENGTH BABY A Birthweight (gm): 3750 Weight (lb): 8 Weight (oz): 4 Infant Length (in): 20.00 Infant Length (cm): 50.80 CORD INFORMATION BABY A No. Cord Vessels: 0 Nuchal Cord : N/A Cord Blood Taken: Yes Infant Suction: Mouth; Nose ASSESSMENT BABY A Complications: None Physical Findings at Delivery: Within Normal Limits Infant Respirations: Appears Normal Sole Leveler/ALS Called : Yes Care By: VERONICA/ RANDAL Transferred To: Remains with Mother
== END 2018-09-11 13:25 | disposition home or self-care (01) | DRG 807 ==
LOC: OBT 10:47 → L-D 10:48 → OBT 15:00 → L-D 09-08 22:23 → PP1 09-09 20:41
PROVIDERS: ADMIT Obstetrics & Gynecology; ATTEND Obstetrics & Gynecology
PROC: 10E0XZZ Delivery of Products of Conception, External Approach (ICD-10-PCS; principal; 2018-09-09)
PROC: 3E033VJ Introduction of Other Hormone into Peripheral Vein, Percutaneous Approach (ICD-10-PCS; 2018-09-09)
PROC: 3E0P7VZ Introduction of Hormone into Female Reproductive, Via Natural or Artificial Opening (ICD-10-PCS; 2018-09-09)
PROC: 0UQMXZZ Repair Vulva, External Approach (ICD-10-PCS; 2018-09-09)
DX: O14.00 Mild to moderate pre-eclampsia, unspecified trimester (principal); Z37.0 Single live birth; Z3A.37 37 weeks gestation of pregnancy; O70.0 First degree perineal laceration during delivery
CPT/HCPCS: 62322; 76815; 76818; 80053; 81001; 82575; 84156; 84560; 85025; 85384; 85610; 85730; 86592; 86850; 86900; 86901; 87340; 90716; 93970; 99464; A4310; G0463; J0595; J2590; J3010; J7120

== ENCOUNTER 2018-11-09 16:20 | Emergency (ER) | payer OTHER ==
[~2018-11-09] VITALS: Ht 157.5 cm; Wt 84.1 kg
[~2018-11-09 16:20] MED LIST changes: +ACET-141 PO; +HC30CR25 TOP; +IBUP-1542 PO; +PSYL1040 PO
[2018-11-09 16:26] VITALS: Ht 157.5 cm; Wt 84.1 kg
[2018-11-09 21:37] VITALS: BP 128/72; PULSE 73; RESP 16
== END 2018-11-09 21:37 | disposition home or self-care (01) ==
LOC: FTE 16:20
DX: N83.209 Unspecified ovarian cyst, unspecified side (principal); K64.8 Other hemorrhoids; R10.2 Pelvic and perineal pain
CPT/HCPCS: 36415; 76830; 76856; 81001; 84702